=== PATIENT | female | born 1995 | race Two or more races ===

== ENCOUNTER 2016-06-30 02:38 | Emergency (ER) | payer OTHER ==
[~2016-06-30] VITALS: Ht 162.6 cm; Wt 63.5 kg
[2016-06-30] MEDS ORDERED: NKM (02:50)
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
[2016-06-30 05:51] VITALS: BP 115/63
--- NOTE | 2016-06-30 08:54 | Diagnostic Imaging Report ---
Indication: Right leg pain Technique: XRAY LEG LOWER TIB/FIB 2V RIGHT Comparison: None Findings: There is no acute fracture or dislocation. Bone mineralization is normal. Soft tissues are grossly unremarkable. Impression: No acute osseous abnormality.
[2016-06-30 09:46] VITALS: BP 111/62
[2016-06-30 09:47] VITALS: BP 111/62
== END 2016-06-30 10:15 | disposition home or self-care (01) ==
LOC: EDBD 02:38 → EMR 09:16
DX: S80.11XA Contusion of right lower leg, initial encounter (principal); S80.811A Abrasion, right lower leg, initial encounter; V49.9XXA Car occupant (driver) (passenger) injured in unspecified traffic accident, initial encounter; Y92.89 Other specified places as the place of occurrence of the external cause
CPT/HCPCS: 99283